=== PATIENT | female | born 2005 | race Caucasian/White ===

== ENCOUNTER 2025-10-23 15:47 | Emergency (ER) | payer BC, SELFPAY ==
--- OUTSIDE RECORDS SUMMARY | 2025-10-23 15:49 | XMS_ITS | Clinical Summary ---
Author Organization [facility] Address [address] [place] [address] Care Team Providers Care Organizational Development Consultant Name Role Phone Shira Gama NP Primary Care Provider [phone] Allergies No known active allergies Medications MedicationSigDispense QuantityRefillsLast FilledStart DateEnd DateStatus Ines, 28, 3-0.02 mg tablet Indications:Evaluation regarding contraception optionsTAKE ONE TABLET BY MOUTH EVERY DAY 84 Tablet ctive sertraline (ZOLOFT) 50 mg tablet Indications:Major depressive disorder, recurrent, moderate (HC),Generalized anxiety disorderTake 1.5 Tablets (75 mg) by mouth every morning. 135 Tablet ctive guanFACINE (INTUNIV) 2 mg Extended-Release tablet Indications:Generalized anxiety disorder,Unable to concentrateTake 1 Tablet (2 mg) by mouth once daily. 90 Tablet ctive miSOPROStoL (Cytotec) 200 mcg tablet Indications:Cervical stenosis (uterine cervix)take 1 time dose the night before the procedure orally. 2 Tablet 05/31/2024ctive Active Problems ProblemNoted DateDiagnosed DateMajor depressive disorder, recurrent, severe without psychotic rtkensan45/28/2021nxiety and lovdvuscti08/17/2019Vitamin D xvmiwiyhnv24/17/2019History of impulsive okspalvh05/29/2017Myopia of both eyes 07/13/2017Exotropia, gbfnjiiaxbx21/14/2017Depression, major, single episode, mild02/15/20176971Enkbrva20/23/2016 Resolved Problems ProblemNoted DateDiagnosed DateResolved QewfAwczmkl24 Immunizations ImmunizationAdministration DatesNext DueAMB Influenza, (Flumist) Live Intranasal,LAIV4 (Flu Clinic Only)10/11/2008COVID-19 vaccine (Dandelion 30mcg/0.3mL) PF, MDV04/20/2021,2034WZsE77/16/2008,07/07/2005,2004, 2004,2004HIB-HepB (Comvax)07/07/2005,2004,2004HPV 9 (Gardasil 9)02/15/2017,08/08/2016,06/21/2016Hepatitis A (Peds)07/30/2014, 07/07/2010Inactivated Polio Otiaesb3804/14/2008,07/07/2005,2004,2004 Influenza A (H1N1), Live Fqcpcbaaot40/04/2010,11/30/2009Influenza, IIV3 (Age >=3 years)11/30/2009,10/10/2007,09/10/2007Influenza, KBI431/,08/26/2021, 08/19/2020,08/14/2019,06/21/2016Influenza,LAIV4 Live Intranasal (Flumist) 09/28/2015,07/30/2014,08/31/2012MENINGOCOCCAL VACCINE 2 VIAL 2MO-55YO (MENVEO) 08/19/2020,06/21/2016MMR04/14/2008,03/31/2005Pneumococcal conj 7-Valent (Prevnar 7)07/07/2005,2004,2004,2004Tdap06/21/2016Varicella Vaccine 04/14/2008,03/31/2005 Family History Medical HistoryRelationNameCommentsSuicidalityMaternal GrandfatherPsychiatric illnessMothermother with hx of depression and etoh useStrabismusSister 2Relation NameStatusCommentsBrother 1AliveBrother 2AliveBrother 3AliveFatherAliveMaternal GrandfatherDeceasedMaternal GrandmotherAliveMotherAlivePaternal GrandmotherAlive Sister 1AliveSister 2Alive Social History Tobacco UseTypesPacks/DayYears UsedDateSmoking Tobacco: NeverSmokeless Tobacco: Never Tobacco Cessation:Counseling Given: Yes Comments:none Alcohol UseStandard Drinks/WeekCommentsNo0 (1 standard drink = 0.6 oz pure alcohol)PHQ-2AnswerDate RecordedPHQ-2 TOTAL WHMLS723Social Connections AnswerDate RecordedFrequency of Communication with Friends and FamilyNot on file 02/27/2023Financial Resource StrainAnswerDate RecordedDifficulty of Paying Living Crdqthxx730ifficulty of Paying Living Gksyizaz140/20/2022Food InsecurityAnswerDate RecordedWorried About Running Out of Food in the Last Year1 02/16/2022Transportation NeedsAnswerDate RecordedLack of Transportation (Medical)Housing StabilityAnswerDate RecordedUnable to Pay for Housing in the Last Dgfp149regnantCommentsNoSex and Gender Information ValueDate RecordedSex Assigned at BirthNot on fileLegal LldKjvytq19/14/2013 7:23 AM CSTGender IdentityNot on fileSexual OrientationNot on file Last Filed Vital Signs Vital SignReadingTime TakenCommentsBlood Hfwhsxjg412/90003/27/2024 3:59 PM CDT Zakca868503/27/2024 3:59 PM TZUUlhjbayrsje02 ??C (98.6 ??F)10/23/2022 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 Respiratory Kbol047912/24/2021 5:00 PM CSTOxygen Rbpnocbyfl34%10/23/2022 5:00 PM CSTInhaled Oxygen Concentration--Giswxx63.8 kg (112 lb)03/27/2024 3:59 PM CDT Pqsvft076 cm (5' 4.17)03/27/2024 3:59 PM CDTBody Mass Index19.12003/27/2024 3:59 PM CDT Plan of Treatment Health MaintenanceDue DateLast DoneCommentsDepression screening for age 12+ 2016HIV for age 15-Hepatitis C screening for age 18-79 2022ap test for age 21-6505BMI (ht and wt on same day) for age 18+505/, 2COVID-19 vaccine series ( - 2024- season) /, 03/24/2021Influenza Vaccine (#1)511/, 08/26/2021, 08/19/2020, Additional history existsTetanus vmgenwc9006/21/2026 06/21/2016Hepatitis B series for 19+Ygabcakqd86/08/2005, 2004, 2004 Pneumococcal series for age 6-49Aged Out07/07/2005, 2004, 2004, Additional history existsNo longer eligible based on patient's age to complete this topicHPV series for age 9-16Wbefhrqci24/19/2017, 08/08/2016, 06/21/2016 Meningococcal series for age 11-68Azgiztozl86/21/2020, 06/21/2016 Insurance * Guarantor: Maria Guadalupe BYERS TypeRelation to PatientDate of BirthPhone Billing AddressPersonal/NlnxiiJmmttl60/03/1972 [address] [place] [address] Care Teams Team MemberRelationshipSpecialtyStart [place] [address] [place] [address] PCP - GeneralNurse Practitioner05/29/20
--- OUTSIDE RECORDS SUMMARY | 2025-10-23 15:49 | XMS_ITS | Clinical Summary ---
Author Organization [facility] Address [address] [place] [address] Care Team Providers Care Ship'S Master Name Role Phone Unavailable Primary Care Provider Unavailabl e Source Comments You are receiving this document as you are listed as the primary care provider,follow-up provider, or the patient has been referred to you for consultation.This is in compliance with the Medicare andMedicaid EHR Incentive Program,which states Providers who transition their patient to another setting of careor provider of care or refers their patient to another provider of care shouldprovide summary care record for each transition of care or referral. Korbit Allergies No known active allergies Medications No known medications Active Problems ProblemNoted DateDiagnosed DateAvoidant-restrictive food intake disorder (ARFID) 01/11/2024bnormal weight loss01/11/2024Major depressive disorder, recurrent, severe without psychotic ntwoenmd40/28/2021Generalized anxiety disorder 06/21/2016 Immunizations ImmunizationAdministration DatesNext DuePfizer Monovalent 12+ Purple Top 04/20/2021,03/24/2021 Family History Medical HistoryRelationNameCommentsAnxietyBirth MotherDepressionBirth Mother RelationNameStatusCommentsBirth Mother Social History Tobacco UseTypesPacks/DayYears UsedDateSmoking Tobacco: NeverPassive Smoke Exposure: CurrentSmokeless Tobacco: Never Tobacco Cessation:Counseling Given: Not Answered Passive Exposure Comments:parent smokes outside homeAlcohol UseStandard Drinks/WeekCommentsYes0 (1 standard drink = 0.6 oz pure alcohol)rarely CommentsNoSex and Gender InformationValueDate RecordedSex Assigned at BirthNot on fileLegal QdnSiareq03/01/2024 2:12 PM CSTGender IdentityNot on fileSexual OrientationNot on file Last Filed Vital Signs Vital SignReadingTime TakenCommentsBlood Bivxjptx825/7603 9:09 AM CDT Egslf068801/11/2024 9:09 AM ADBBqagqgnwxwn50.6 ??C (97.8 ??F)01/11/2024 9:08 AM CDTRespiratory Rate--Oxygen Saturation--Inhaled Oxygen Concentration--Crrzce67 kg (103 lb 9.9 oz)01/11/2024 9:09 AM AVBYmqiqj040.4 cm (5' 4.33)01/11/2024 9:09 AM CDTBody Mass Index17.6001/11/2024 9:09 AM CDT Plan of Treatment Health MaintenanceDue DateLast DoneCommentsCervical Cancer Screening Due 2004 4392Mhopcufwj2004Hep C Screening (Preventive Services)2004MenB Immunization Whjsgfsaxu2004HIV Screening (Preventive Services)2020 Adult Preventive Visit2022HepB Vaccine (1)2023OVID-19 Vaccine (3 - season)/, 03/24/2021Influenza Vaccine (#1)2025 09/28/2022, 08/26/2021, 08/19/2020, Additional history existsDTaP/Tdap/Td Vaccine (7 - Tdap)6006/21/2016, 04/14/2008, 07/07/2005, Additional history existsZoster/Shingles Vaccine (1 of 2)2054Hib VaccineCompleted 07/07/2005, 03/31/2005, 2004, Additional history existsPneumococcal VaccineAged Out07/07/2005, 2004, 2004, Additional history existsNo longer eligible based on patient's age to complete this topicIPV (Polio) Vaccine Oowdgskco62/16/2008, 07/07/2005, 2004, Additional history existsHepA HhwdymoJddiubbux04/01/2014, 07/07/2010HPV TduzfvdRgaxnaaan67/19/2017, 08/08/2016, 06/21/2016MCV4 IyqelmaHeybtlpiu75/21/2020, 06/21/2016 Insurance * Guarantor: Glayds Byers TypeRelation to PatientDate of BirthPhone Billing AddressPersonal/IfetdyWlfc[address] [place] [address]
--- OUTSIDE RECORDS SUMMARY | 2025-10-23 15:49 | XMS_ITS | Clinical Summary ---
Author Organization [facility] Address [address] [place] [address] Care Team Providers Care Alteration Tailor Apprentice Name Role Phone No Ref-Primary, Physician Primary Care Provider Allergies No known active allergies Medications MedicationSigDispense QuantityRefillsLast FilledStart DateEnd DateStatus UNABLE TO FIND Take 2 tablets by mouth daily. MEDICATION NAME: wellmuneActive escitalopram (LEXAPRO) 5 MG tablet Take 5 mg by mouth dailyActive ibuprofen (ADVIL/MOTRIN) 600 MG tablet Take 1 tablet (600 mg) by mouth every 6 hours as needed for mild pain or moderate pain. 30 tablet 5Active Active Problems ProblemNoted DateDiagnosed QetkZieblkrbi62/03/2012Vocal cord jflpkum3103/12/2012 Social History Tobacco UseTypesPacks/DayYears UsedDateSmoking Tobacco: NeverComments UnknownSex and Gender InformationValueDate RecordedSex Assigned at BirthNot on fileLegal LjhUiifos21/04/2012 4:45 AM CSTGender IdentityNot on fileSexual OrientationNot on file Last Filed Vital Signs Vital SignReadingTime TakenCommentsBlood Nyhznhsi255/8301/02/2025 8:56 PM CHAIN MENDER Phhpn207201/02/2025 8:56 PM RHMNvqekwmmaze09.7 ??C (98.1 ??F)01/02/2025 8:56 PM CSTRespiratory Bfut758601/02/2025 8:56 PM CSTOxygen Yriqtidwdl72%01/02/2025 8:56 PM CSTInhaled Oxygen Concentration--Gbjjvh06 kg (116 lb 13.5 oz)10/03/2019 12:44 AM CSTHeight--Body Mass Index-- Plan of Treatment Health MaintenanceDue DateLast DoneCommentsADVANCE CARE WQBEPKOZ2004ANNUAL REVIEW OF HM NUTIBD97 2004CHLAMYDIA FBNVXYHJI2004HIV SCREENING 2019MENINGITIS B VACCINE (1 of 2 - Standard)2020HEPATITIS C IFSFXWZIP26/25/2022YEARLY PREVENTIVE VISIT/, 08/19/2020PHQ-2 (once per calendar year)2024PAP5COVID-19 VACCINE (3 - 2024- season)/, 03/24/2021INFLUENZA VACCINE (#1)2025 09/28/2022, 08/26/2021, 08/19/2020, Additional history existsDTAP/TDAP/TD VACCINE (7 - Td or Tdap)6006/21/2016, 04/14/2008, 07/07/2005, Additional history existsZOSTER VACCINE (1 of 2)2054HEPATITIS B VACCINECompleted 07/07/2005, 2004, 2004PNEUMOCOCCAL VACCINE: PEDIATRICS (0 to 5 YEARS) AND AT-RISK PATIENTS (6 to 49 YEARS)Aged Out07/07/2005, 2004, 2004, Additional history existsNo longer eligible based on patient's age to complete this topicHPV MHNWQMPGzrgzgmfi41/19/2017, 08/08/2016, 06/21/2016 MENINGITIS AVMRFSXWhdrblllm42/21/2020, 06/21/2016 [place] [facility] [place]: [id number] [place] [phone] [facility] Address: [id number] [place] [id number] Care Teams Team MemberRelationshipSpecialtyStart DateEnd Date No Ref-Primary, Physician PCP - [facility]01/02/25
--- NOTE | 2025-10-23 15:50 | ED_ITS ---
HPI - General Adult General Time Seen by Provider: 15:50 Date Seen: 10/23/25 Chief complaint: Nausea/Vomiting Stated complaint: vomiting Time Seen by Provider: 10/23/25 15:48 Source: patient and old records reviewed Mode of arrival: ambulatory Limitations: no limitations History of Present Illness HPI narrative: 20-year-old patient who presents today with nausea vomiting since last night. No diarrhea, generalized abdominal pain. Recent upper respiratory infection which has been improving. No chest pain or shortness of breath, no urinary symptoms. Has similar symptoms with menstrual cycles and did start cycle today. Tried to take aspirin at home with no improvement. Related Data Home Medications ?Medication ?Instructions ?Recorded ?Confirmed No Known Home Medications 10/23/2509/30 Allergies Allergy/AdvReac Type Severity Reaction Status Date / Time No Known Drug Allergies Allergy Verified 10/23/25 15:57 Exam Narrative: Exam Narrative: General: Well-developed and well-nourished, no acute distress Head: Atraumatic and normocephalic Eyes: Pupils are equal reactive, extraocular motions intact, conjunctiva clear ENT: External nose and ears are normal, posterior pharynx without erythema or exudate Neck: No midline cervical tenderness, full spontaneous range of motion the neck, trachea midline, no adenopathy Heart: Regular rate and rhythm no murmurs or thrills Lungs: Clear to auscultation bilaterally without wheezes or crackles Abdomen: Soft, nontender, nondistended with active bowel sounds Musculoskeletal: No tenderness, deformity, or edema Neurologic: Awake, alert, and oriented x3, no gross focal neurologic deficits, cranial nerves intact as tested Psych: Mood and affect are appropriate Skin: No rashes Const: Vital Signs, click to edit/add: Vital Signs - 24 hr 10/23/25 15:51 Temperature 99.6 F Pulse Rate [Right Pulse Oximeter] 85 Respiratory Rate 18 Blood Pressure [Ri ght Upper Arm] 114/73 Pulse Oximetry 98 Oxygen Delivery Me thod Room Air Course Course ED Course: Additional records reviewed: Prior emergency department visit from January 02 which was for abdominal pain, nausea vomiting, at that time labs reassuring, urinalysis with hematuria, no imaging. Additional history from: Mother Care impacted by: Anxiety and depression Testing considered but not performed: See ED course Disposition: Discharge Patient presents today with vomiting since last night, did have some abdominal cramping yesterday but none today. No diarrhea, has similar symptoms with menstrual cycles. On exam here, awake alert, vital is stable, no distress, no abdominal tenderness. Labs ordered along with fluids and Zofran. Reevaluation(s) Time of Reevaluation #1: 16:59 Reevaluation #1: Labs i independently interpreted by me with normal basic panel, negative COVID, negative flu. Patient is stable for discharge. Vital Signs Vital signs: Initial Vital Signs Temperature 99.6 F 10/23/25 15:51 Temperature Source Temporal Artery Scan 10/23/25 15:51 Pulse Rate 85 10/23/25 15:51 Pulse Rhythm Regular 10/23/25 15:51 Pulse Strength 3+ Normal 10/23/25 15:51 Respiratory Rate 18 10/23/25 15:51 Blood Pressure 114/73 10/23/25 15:51 Blood Pressure Mean 86 10/23/25 15:51 Blood Pressure Position Sitting 10/23/25 15:51 Pulse Oximetry 98 10/23/25 15:51 Oxygen Delivery Method Room Air 10/23/25 15:51 Vital Signs Temperature 99.6 F 10/23/25 15:51 Pulse Rate 85 10/23/25 15:51 Respiratory Rate 18 10/23/25 15:51 Blood Pressure 114/73 10/23/25 15:51 Pulse Oximetry 98 10/23/25 15:51 Oxygen Delivery Method Room Air 10/23/25 15:51 Temperature 99.6 F 10/23/25 15:51 Pulse Rate 85 10/23/25 15:51 Respiratory Rate 18 10/23/25 15:51 Blood Pressure 114/73 10/23/25 15:51 Pulse Oximetry 98 10/23/25 15:51 Oxygen Delivery Method Room Air 10/23/25 15:51 Medications Administered Medications: Generic Name Dose Route Start Last Admin Trade Name Freq PRN Reason Stop Dose Admin Sodium Chloride 1,000 mls @ 1,000 mls/hr 10/23/25 16:15 10/23/25 16:19 0.9 % Sodium Chloride 1000 Ml IV 10/23/25 17:14 1,000 mls/hr .Q1H JUVE Administration Discontinued Medications Generic Name Dose Route Start Last Admin Trade Name Freq PRN Reason Stop Dose Admin Ondansetron HCl 4 mg 10/23/25 16:06 10/23/25 16:20 Ondansetron 2 Mg/Ml Inj IVP 10/23/25 16:07 4 mg ONCE ONE Administration Medical Decision Making Lab Data Labs: Lab Results 10/23/25 10/23/25 Range/Units 16:00 16:20 Sodium 139 (135-149) mmol/L Potassium 4.0 (3.6-5.1) mmol/L Chloride 103 (96-114) mmol/L Carbon Dioxide 23 (20-32) mmol/L Anion Gap 13 (7-15) mEq/L BUN 8 (5-24) mg/dL Creatinine 0.4 L (0.5-1.5) mg/dL Estimated GFR 144 ml/min Glucose 120 H (60-115) mg/dL Calcium 9.8 (8.4-10.6) mg/dL Magnesium 1.9 (1.5-2.6) mg/dL SARS-CoV-2 (PCR) Negative SARS-CoV-2 (Negative) Influenza Type A (PCR) Negative PCR FLU A (Negative) Influenza Type B (PCR) Negative PCR FLU B (Negative) RSV (PCR) Negative PCR RSV (Negative) Discharge Plan Discharge Clinical Impression: Nausea and vomiting Patient Disposition: Home, Self-Care Condition: Stable Instructions: Acute Nausea and Vomiting (ED) Additional Instructions: Take Zofran as needed Liquid diet for 24 hours Activity Level: No Restrictions Discharge Diet: Regular and Full Liquid Prescriptions: No Action No Known Home Medications Follow Up/Referrals: Provider,Not a Local [Primary Care Provider, Family Practice] Stand Alone Forms: [employer] Info Instructions
[2025-10-23 15:51] VITALS: BP 114/73; PULSE 85; RESP 18; TEMP 37.6; O2SAT 98
[2025-10-23] MEDS: ONDANSETRON 2 MG/ML inj 4 MG IVP (16:20)
[2025-10-23 16:41] LABS: Chloride* 103 mmol/L (96-114); Sodium* 139 mmol/L (135-149)
[2025-10-23 16:41] LABS: PCR FLU A Negative PCR FLU A (Negative); PCR FLU B Negative PCR FLU B (Negative); PCR RSV Negative PCR RSV (Negative); SARS PCR* Negative SARS-CoV-2 (Negative)
[2025-10-23 16:42] LABS: Potassium* 4.0 mmol/L (3.6-5.1)
[2025-10-23 16:45] LABS: Anion Gap 13 mEq/L (7-15); Blood Urea Nitrogen* 8 mg/dL (5-24); Calcium* 9.8 mg/dL (8.4-10.6); Carbon Dioxide* 23 mmol/L (20-32); Creatinine* 0.4 mg/dL (0.5-1.5); Estimated Glomerular Filt Rate 144 ml/min; Glucose* 120 mg/dL (60-115)
== END 2025-10-23 17:10 | disposition home or self-care (01) ==
PROVIDERS: Emergency Provider Family Medicine
DX: R11.2 Nausea with vomiting, unspecified (principal)
CPT/HCPCS: 36415; 80048; 83735; 87631; 99284; J2405; J7030